=== PATIENT | female | born 1990 | race African-American/Black ===

== ENCOUNTER 2016-07-02 20:54 | Emergency (ER) | payer OTHER, SELFPAY ==
--- NOTE | 2016-07-02 21:42 | ERRECORD ---
[facility] EMERGENCY RECORD HPI NAUSEA/VOMITING/DIARRHEA (Sat Jul 03, 2016 00:17 JOHE) CHIEF COMPLAINT: Patient presents for evaluation of diarrhea, Number of times: 5, described as loose stools. HISTORIAN: History provided by patient, Pt. reports 5 X loose stools since last night. Mild suprapubic cramping without radiation or migration as well. No hematochezia, melena, F&C, N&V, or other complaints.No ill contacts, trauma or travel. No change in diet. Came to ED to see what she can take for diarrhea. LOCATION FEMALE: Symptoms are localized, most severe in the suprapubic region, no radiation, No migration of pain. QUALITY: Pain is dull in nature, described as cramping. SEVERITY: Maximum severity of symptoms mild, Currently symptoms are mild. TIME COURSE: Gradual onset of symptoms, 1, days priror to arrival, There has been no change in the patient's symptoms over time, are intermittent. ASSOCIATED WITH FEMALE: No associated recent antibiotic use, No associated bright red blood per rectum, No associated chills, No associated constipation, Associated with diarrhea, No associated fever, No associated flank pain, No associated groin pain, No associated hematemesis, No associated hematuria, No associated loss of appetite, No associated melena, No associated nausea, No associated night sweats, No associated trauma, No associated recent travel, No associated inability to tolerate oral intake, No associated urinary tract infection signs or symptoms, No associated vomiting, No associated vaginal discharge, No associated vaginal bleeding, No associated weight change, Denies any other complaints. EXACERBATED BY: Patient's condition exacerbated by nothing. RELIEVED BY: Patient's condition relieved by nothing because patient has not tried anything for relief. ROS (Sat Jul 03, 2016 00:19 JOHE) CONSTITUTIONAL: Historian denies chills, denies fatigue, denies fever, denies malaise, denies weakness, denies weight loss. EYES: Historian denies eye pain, denies vision changes. ENT: Historian denies otalgia, denies rhinorrhea, denies sore throat. CARDIOVASCULAR: Historian denies chest pain, denies syncope, denies palpitations. RESPIRATORY: Historian denies cough, denies shortness of breath, denies wheezing. GI: Historian reports abdominal pain, denies appetite changes, denies constipation, reports diarrhea, denies hematemesis, denies hematochezia, denies melena, denies nausea, denies vomiting. GENITOURINARY FEMALE: Historian denies dysuria, denies frequency, denies hematuria, denies urgency. MUSCULOSKELETAL: Historian denies back pain, denies myalgias, denies neck pain. SKIN: Historian denies rash, denies skin changes. &a-1R&a+25V*p+0X*r8381Q*c202B*c15G*c2P*p-0X&a-25V&a+1R Name: Ghassan Corrales : 1990 F25 MedRec: [id number] AcctNum: [id number] Prepared: Sat Jul 03, 2016 00:33 by Interface Page 1 of 3 pMD [facility] EMERGENCY RECORD NEUROLOGIC: Historian denies dizziness, denies focal weakness, denies gait changes, denies headache. NOTES: All systems reviewed, negative except as described above. PAST MEDICAL HISTORY (21:08 MBOS) MEDICAL HISTORY: No past medical history, Flu vaccine not up to date, Tetanus immunization up to date, Pneumococcal vaccine not up to date. FEMALE SURGICAL HISTORY: Patient has no surgical history. PSYCHIATRIC HISTORY: No previous psychiatric history. SOCIAL HISTORY: Patient drinks socially, twice a month, Patient denies drug use, Patient has no smoking history. KNOWN ALLERGIES Penicillins CURRENT MEDICATIONS No recorded medications VITAL SIGNS (21:05 MBOS) VITAL SIGNS: BP: 133/69, Pulse: 72, Resp: 16, Temp: 98.8 (Oral), Pain: 0, O2 sat: 98 on Room Air, Time: 07/02/2016 21:05. PHYSICAL EXAM (Sat Jul 03, 2016 00:20 JOHE) CONSTITUTIONAL: Vital signs reviewed, Pulse normal, Blood pressure normal, Respiratory rate normal, Patient appears non toxic, Patient alert and oriented to person, place and time, Appears well, NAD. HEAD: Head exam normal, Head exam included findings of head atraumatic, normocephalic. EYES: Eye exam normal, Eye exam included findings of eyelids normal to inspection, Pupils equally round and reactive to light, Extraocular muscles intact, Conjunctiva normal. ENT: ENT exam normal, Pharynx exam normal, not injected, no swelling, symmetrical, Uvula exam normal, midline, no edema, Tonsil exam normal, not enlarged, no exudates, Mouth exam normal, mucous membranes moist, no drooling, no lesions, no lacerations, no tongue elevation. NECK: Neck exam normal, Neck exam included findings of normal range of motion, Trachea midline. RESPIRATORY CHEST: Respiratory and chest exam normal, Respiratory exam included findings of no respiratory distress, Breath sounds clear, No wheezing, No rales, No rhonchi, Breath sounds not absent, Breath sounds not diminished, CTAB. CARDIOVASCULAR: Cardiovascular assessment normal, Cardiovascular exam included findings of heart rate regular rate and rhythm, Heart sounds normal, Pedal pulses normal, RRR, no R/M/G. + pulses all ext., no edema. ABDOMEN FEMALE: Abdominal exam normal, Abdominal exam included findings of abdomen nontender, Bowel sounds normal, Distension &a-1R&a+25V*p+0X*u1686Z*c202B*c15G*c2P*p-0X&a-25V&a+1R Name: Ghassan Corrales : 1990 F25 MedRec: [id number] AcctNum: [id number] Prepared: Sat Jul 03, 2016 00:33 by Interface Page 2 of 3 pMD [facility] EMERGENCY RECORD present, Mass palpated, Pulsatile mass present, Peritoneal signs present, rigidity present, guarding present, rebound present, Soft, ND, NT, + BS. No palpable masses, no CVAT. BACK: Back exam normal, Back exam included findings of normal inspection, range of motion normal, no tenderness, no costovertebral angle tenderness. UPPER EXTREMITY: Upper extremity exam normal, Upper extremity exam included findings of inspection normal, Range of motion normal, Motor strength normal, Radial pulse normal. LOWER EXTREMITY: Lower extremity exam normal, Lower extremity exam included findings of inspection normal, Range of motion normal, Motor strength normal, Posterior tibial pulse normal, Pedal pulse normal, no edema. NEURO: Neuro exam normal, [place] coma scale 15, Neuro exam findings include patient oriented to person, place and time, Speech normal, Gait normal. SKIN: Skin exam normal, Skin exam included findings of skin warm, dry, and normal in color, no rash. DOCTOR NOTES (Sat Jul 03, 2016 00:23 JOHE) TEXT: Note - Chart completed after patient discharge. Offered lab testing given diarrhea, and mild cramping. Patient refuses labs and imaging at this time. As she appears well, with benign abdominal exam, will d/c home with symptomatic treatment for presumed gastroenteritis. Discussed treatment, need for close outpatient f/u, and warning signs for immediate return to ED. PROBLEM LIST No recorded problems DIAGNOSIS (21:20 KRYSTYNA) FINAL: PRIMARY: Diarrhea - presumed infectious. PRESCRIPTION (21:21 KRYSTYNA) Imodium: CAPSULE : 2 mg : ORAL : Quantity: 1 Unit: cap(s) Route: ORAL Schedule: every 6 hours PRN Dispense: 15 Unit: cap(s) May substitute. Refills: No Refills . NOTES: No Refills. DISPOSITION PATIENT: Disposition Type: Discharge, Disposition: *Discharge Home, Condition: Good. (21:20 KRYSTYNA) Patient left the department. (21:31 JENNIFER) Caldwell: KRYSTYNA=MD Phi, Mian MBOS=ALEX Meyers, Fatuma &a-1R&a+25V*p+0X*p5464Q*c202B*c15G*c2P*p-0X&a-25V&a+1R Name: Ghassan Corrales : 1990 F25 MedRec: [id number] AcctNum: [id number] Prepared: Jun Jul 03, 2016 00:33 by Interface Page 3 of 3 pMD MTDD
--- NOTE | 2016-07-02 21:46 | PICIS ---
[facility] EMERGENCY RECORD TRIAGE (TueJul 02, 2016 21:05 MBOS) TRIAGE NOTES: diarrhea, started last night, denies any other symptoms. (TueJul 02, 2016 21:05 MBOS) PATIENT: NAME: Ghassan Corrales, AGE: 25, GENDER: female, : [facility] 1990, TIME OF GREET: TueJul 02, 2016 20:54, PREFERRED LANGUAGE: Irish, ETHNICITY: Not or , ECODE BILLING MAP: [facility], SSN: [id number], Zip Code: [address], KG WEIGHT: 101.60, PHONE: , , , PERSON ID: [id number], PCP: Dewey MARQUIS NOREEN. (TueJul 02, 2016 21:05 MBOS) COMPLAINT: DIARRHEA. (TueJul 02, 2016 21:05 MBOS) ADMISSION: URGENCY: 5 [employer], ADMISSION SOURCE: Home, TRANSPORT: CAR, BED: ER -04. (TueJul 02, 2016 21:05 MBOS) ASSESSMENT: Assessment: diarrhea since 1930 last night, 4 episodes, Symptoms began 24 hours ago. (21:08 MBOS) PAIN: No complaint of pain. (21:08 MBOS) IMMUNIZATIONS: Flu vaccine not up to date, Tetanus immunization up to date, Pneumococcal vaccine not up to date. (21:08 MBOS) SIRS SCORING: Heart Rate 55-109 (0), Temp range 96.8-101.1 (0), respiratory rate 12-24 (0), Mental Status altered: no (0). (21:08 MBOS) PROVIDERS: TRIAGE NURSE: Fatuma Meyers RN. (TueJul 02, 2016 21:05 MBOS) VITAL SIGNS: BP 133/69, Pulse 72, Resp 16, Temp 98.8, (Oral), Pain 0, O2 Sat 98, on Room Air, Time 07/02/2016 21:05. (21:05 MBOS) PREVIOUS VISIT ALLERGIES: Penicillins. (TueJul 02, 2016 21:05 MBOS) Penicillins. (21:08 MBOS) KNOWN ALLERGIES Penicillins CURRENT MEDICATIONS No recorded medications VITAL SIGNS (21:05 MBOS) VITAL SIGNS: BP: 133/69, Pulse: 72, Resp: 16, Temp: 98.8 (Oral), Pain: 0, O2 sat: 98 on Room Air, Time: 07/02/2016 21:05. NURSING ASSESSMENT: ABDOMEN (21:14 MBOS) CONSTITUTIONAL: Patient arrives ambulatory, Gait steady, History obtained from patient, Patient appears comfortable, Patient cooperative, Patient alert, Oriented to person, place and time, Skin warm, Skin dry, Skin normal in color, Mucous membranes pink, Mucous membranes moist, Patient is well-groomed, Patient complains of diarrhea. PAIN: Patient rates pain as 0 out of 10. ABDOMEN: Abdomen assessment findings include abdomen symmetrical, Abdomen soft, tender, suprapubic, slight &a-1R&a+25V*p+0X*r7649S*c202B*c15G*c2P*p-0X&a-25V&a+1R Name: Ghassan Corrales : 1990 F25 MedRec: [id number] AcctNum: [id number] Prepared: Sat Jul 03, 2016 00:33 by Interface Page 1 of 5 pMD [facility] EMERGENCY RECORD tenderness, no pulsatile mass, Bowel sound normal, no associated nausea, no associated vomiting, Associated with diarrhea, loose, watery, Number of episodes: 4, Patient reports 4 episodes of diarrhea in the last 24 hours. SAFETY: Side rails up, Cart/Stretcher in lowest position, Call light within reach, Hospital ID band on. NURSING PROCEDURE: DISCHARGE NOTE (21:26 MBOS) DISCHARGE: Patient discharged to home, ambulating without assistance, driving self, unaccompanied, Summary of Care printed/ provided, Discharge instructions given to patient, Simple or moderate discharge teaching performed, Prescriptions given and instructions on side effects given, Above person(s) verbalized understanding of discharge instructions and follow-up care, Patient treated and evaluated by physician. HPI NAUSEA/VOMITING/DIARRHEA (Sat Jul 03, 2016 00:17 JOHE) CHIEF COMPLAINT: Patient presents for evaluation of diarrhea, Number of times: 5, described as loose stools. HISTORIAN: History provided by patient, Pt. reports 5 X loose stools since last night. Mild suprapubic cramping without radiation or migration as well. No hematochezia, melena, F&C, N&V, or other complaints.No ill contacts, trauma or travel. No change in diet. Came to ED to see what she can take for diarrhea. LOCATION FEMALE: Symptoms are localized, most severe in the suprapubic region, no radiation, No migration of pain. QUALITY: Pain is dull in nature, described as cramping. SEVERITY: Maximum severity of symptoms mild, Currently symptoms are mild. TIME COURSE: Gradual onset of symptoms, 1, days priror to arrival, There has been no change in the patient's symptoms over time, are intermittent. ASSOCIATED WITH FEMALE: No associated recent antibiotic use, No associated bright red blood per rectum, No associated chills, No associated constipation, Associated with diarrhea, No associated fever, No associated flank pain, No associated groin pain, No associated hematemesis, No associated hematuria, No associated loss of appetite, No associated melena, No associated nausea, No associated night sweats, No associated trauma, No associated recent travel, No associated inability to tolerate oral intake, No associated urinary tract infection signs or symptoms, No associated vomiting, No associated vaginal discharge, No associated vaginal bleeding, No associated weight change, Denies any other complaints. EXACERBATED BY: Patient's condition exacerbated by nothing. RELIEVED BY: Patient's condition relieved by nothing because patient has not tried anything for relief. ROS (Sat Jul 03, 2016 00:19 JOHE) CONSTITUTIONAL: Historian denies chills, denies fatigue, denies &a-1R&a+25V*p+0X*p1395M*c202B*c15G*c2P*p-0X&a-25V&a+1R Name: Ghassan Corrales : 1990 F25 MedRec: [id number] AcctNum: [id number] Prepared: Sat Jul 03, 2016 00:33 by Interface Page 2 of 5 pMD [facility] EMERGENCY RECORD fever, denies malaise, denies weakness, denies weight loss. EYES: Historian denies eye pain, denies vision changes. ENT: Historian denies otalgia, denies rhinorrhea, denies sore throat. CARDIOVASCULAR: Historian denies chest pain, denies syncope, denies palpitations. RESPIRATORY: Historian denies cough, denies shortness of breath, denies wheezing. GI: Historian reports abdominal pain, denies appetite changes, denies constipation, reports diarrhea, denies hematemesis, denies hematochezia, denies melena, denies nausea, denies vomiting. GENITOURINARY FEMALE: Historian denies dysuria, denies frequency, denies hematuria, denies urgency. MUSCULOSKELETAL: Historian denies back pain, denies myalgias, denies neck pain. SKIN: Historian denies rash, denies skin changes. NEUROLOGIC: Historian denies dizziness, denies focal weakness, denies gait changes, denies headache. NOTES: All systems reviewed, negative except as described above. PAST MEDICAL HISTORY (21:08 MBOS) MEDICAL HISTORY: No past medical history, Flu vaccine not up to date, Tetanus immunization up to date, Pneumococcal vaccine not up to date. FEMALE SURGICAL HISTORY: Patient has no surgical history. PSYCHIATRIC HISTORY: No previous psychiatric history. SOCIAL HISTORY: Patient drinks socially, twice a month, Patient denies drug use, Patient has no smoking history. PHYSICAL EXAM (Sat Jul 03, 2016 00:20 JOHE) CONSTITUTIONAL: Vital signs reviewed, Pulse normal, Blood pressure normal, Respiratory rate normal, Patient appears non toxic, Patient alert and oriented to person, place and time, Appears well, NAD. HEAD: Head exam normal, Head exam included findings of head atraumatic, normocephalic. EYES: Eye exam normal, Eye exam included findings of eyelids normal to inspection, Pupils equally round and reactive to light, Extraocular muscles intact, Conjunctiva normal. ENT: ENT exam normal, Pharynx exam normal, not injected, no swelling, symmetrical, Uvula exam normal, midline, no edema, Tonsil exam normal, not enlarged, no exudates, Mouth exam normal, mucous membranes moist, no drooling, no lesions, no lacerations, no tongue elevation. NECK: Neck exam normal, Neck exam included findings of normal range of motion, Trachea midline. RESPIRATORY CHEST: Respiratory and chest exam normal, Respiratory exam included findings of no respiratory distress, Breath sounds clear, No wheezing, No rales, No rhonchi, Breath sounds not absent, &a-1R&a+25V*p+0X*b3353C*c202B*c15G*c2P*p-0X&a-25V&a+1R Name: Ghassan Corrales : 1990 F25 MedRec: [id number] AcctNum: [id number] Prepared: Sat Jul 03, 2016 00:33 by Interface Page 3 of 5 pMD [facility] EMERGENCY RECORD Breath sounds not diminished, CTAB. CARDIOVASCULAR: Cardiovascular assessment normal, Cardiovascular exam included findings of heart rate regular rate and rhythm, Heart sounds normal, Pedal pulses normal, RRR, no R/M/G. + pulses all ext., no edema. ABDOMEN FEMALE: Abdominal exam normal, Abdominal exam included findings of abdomen nontender, Bowel sounds normal, Distension present, Mass palpated, Pulsatile mass present, Peritoneal signs present, rigidity present, guarding present, rebound present, Soft, ND, NT, + BS. No palpable masses, no CVAT. BACK: Back exam normal, Back exam included findings of normal inspection, range of motion normal, no tenderness, no costovertebral angle tenderness. UPPER EXTREMITY: Upper extremity exam normal, Upper extremity exam included findings of inspection normal, Range of motion normal, Motor strength normal, Radial pulse normal. LOWER EXTREMITY: Lower extremity exam normal, Lower extremity exam included findings of inspection normal, Range of motion normal, Motor strength normal, Posterior tibial pulse normal, Pedal pulse normal, no edema. NEURO: Neuro exam normal, [place] coma scale 15, Neuro exam findings include patient oriented to person, place and time, Speech normal, Gait normal. SKIN: Skin exam normal, Skin exam included findings of skin warm, dry, and normal in color, no rash. EVENTS TRANSFER: Triage to Emergency Emergency Room -04. (TueJul 02, 2016 21:05 MBOS) Removed from Emergency Emergency Room -04. (21:31 MBOS) DOCTOR NOTES (Sat Jul 03, 2016 00:23 JOHE) TEXT: Note - Chart completed after patient discharge. Offered lab testing given diarrhea, and mild cramping. Patient refuses labs and imaging at this time. As she appears well, with benign abdominal exam, will d/c home with symptomatic treatment for presumed gastroenteritis. Discussed treatment, need for close outpatient f/u, and warning signs for immediate return to ED. PROBLEM LIST No recorded problems DIAGNOSIS (21:20 JOHE) FINAL: PRIMARY: Diarrhea - presumed infectious. DISPOSITION PATIENT: Disposition Type: Discharge, Disposition: *Discharge Home, Condition: Good. (21:20 E) Patient left the department. (21:31 MBOS) &a-1R&a+25V*p+0X*c6072L*c202B*c15G*c2P*p-0X&a-25V&a+1R Name: Ghassan Corrales : 1990 F25 MedRec: [id number] AcctNum: [id number] Prepared: [facility] Jul 03, 2016 00:33 by Interface Page 4 of 5 pMD [facility] EMERGENCY RECORD INSTRUCTION (21:22 KRYSTYNA) DISCHARGE: DIARRHEA, VIRAL (7Y-ADULT), ABDOMINAL PAIN, UNKNOWN CAUSE, (FEMALE). FOLLOWUP: Dewey MARQUIS, [facility], Obstetrics and Gynecology, [facility] [address], [facility] [address], [phone], Follow up with Primary Care Physician in 1-2 days. SPECIAL: Follow-up with your PCP. PRESCRIPTION (21:21 KRYSTYNA) Imodium: CAPSULE : 2 mg : ORAL : Quantity: 1 Unit: cap(s) Route: ORAL Schedule: every 6 hours PRN Dispense: 15 Unit: cap(s) May substitute. Refills: No Refills . NOTES: No Refills. IMAGING *DISCHARGE INSTRUCTIONS RECEIPT: Image captured from scanner. (21:30 MBOS) *SUPPLY CHARGE SHEET: Image captured from scanner. (21:31 MBOS) ADMIN ([facility] Jul 03, 2016 00:25 KYRSTYNA) DIGITAL SIGNATURE: MD Yip John. Caldwell: KRYSTYNA=MD Yip John MBOS=ALEX Meyers, Fatuma &a-1R&a+25V*p+0X*y5897W*c202B*c15G*c2P*p-0X&a-25V&a+1R Name: Ghassan Corrales : 1990 F25 MedRec: [id number] AcctNum: [id number] Prepared: Sat Jul 03, 2016 00:33 by Interface Page 5 of 5 pMD MTDD
== END 2016-07-02 21:26 | disposition home or self-care (01) ==
LOC: NAV ERS 20:54
DX: R19.7 Diarrhea, unspecified (principal)
CPT/HCPCS: 99283

== ENCOUNTER 2016-07-25 20:16 | Emergency (ER) | payer OTHER ==
[2016-07-25] MEDS ORDERED: Ondansetron ODT 4 MG TAB ONE (20:52)
--- NOTE | 2016-07-25 21:16 | PICIS ---
[facility] EMERGENCY RECORD TRIAGE (20:34 KASA) TRIAGE NOTES: Nausea all day, denies D/V. (20:34 KASA) PATIENT: NAME: Ghassan Corrales, AGE: 25, GENDER: female, : [facility] 1990, TIME OF GREET: Sun Jul 25, 2016 20:17, PREFERRED LANGUAGE: Slovenian, ETHNICITY: Not or , ECODE BILLING MAP: [facility] ER, SSN: [id number], Zip Code: [address], KG WEIGHT: 91.63, PHONE: , , , PERSON ID: [id number], PCP: Efraín Carpenter /Shmuel. (20:34 KASA) COMPLAINT: NAUSEA. (20:34 KASA) ADMISSION: URGENCY: 5 Fast [employer], ADMISSION SOURCE: Home, TRANSPORT: CAR, BED: ER -05. (20:34 KASA) PAIN: No complaint of pain. (20:38 KASA) SIRS SCORING: Heart Rate 55-109 (0), Temp range 96.8-101.1 (0), respiratory rate 12-24 (0), Mental Status altered: no (0). (20:38 KASA) TRIAGE SCREENING: Patient denies suicidal ideation, Patient denies presence of domestic violence. (20:38 KASA) LMP: Last menstrual period: 07/03/2016. (20:38 KASA) TREATMENTS IN PROGRESS: Treatments given Prehospital: None. (20:38 KASA) PROVIDERS: TRIAGE NURSE: Hina Reeves RN. (20:34 KASA) VITAL SIGNS: BP 132/76, Pulse 76, Resp 20, Temp 98.5, (Oral), Pain 0, O2 Sat 97, on Room Air, Time 07/25/2016 20:36. (20:36 KASA) PREVIOUS VISIT ALLERGIES: Penicillins. (20:34 KASA) Penicillins. (20:38 KASA) KNOWN ALLERGIES Penicillins: Reaction: Rash, Source: Patient, - hasn't taken since she was little CURRENT MEDICATIONS (20:35 KASA) None VITAL SIGNS (20:36 KASA) VITAL SIGNS: BP: 132/76, Pulse: 76, Resp: 20, Temp: 98.5 (Oral), Pain: 0, O2 sat: 97 on Room Air, Time: 07/25/2016 20:36. NURSING ASSESSMENT: ABDOMEN (20:39 KASA) CONSTITUTIONAL: Patient arrives ambulatory, Gait steady, History obtained from patient, Patient appears comfortable, Patient cooperative, Patient alert, Oriented to person, place and time, Skin warm, Skin dry, Skin normal in color, Mucous membranes pink, Mucous membranes moist, Patient complains of Nausea, Nausea all day, denies D. ABDOMEN: Abdomen assessment findings include abdomen symmetrical, Abdomen soft, non-tender, Associated with nausea, no associated vomiting, no associated diarrhea, Associated with constipation, Date of last bowel movement: 07/24/2016, no associated weight change, no associated appetite change, no &a-1R&a+25V*p+0X*o9140W*c202B*c15G*c2P*p-0X&a-25V&a+1R Name: Ghassan Corrales : 1990 F25 MedRec: [id number] AcctNum: [id number] Prepared: Yancy Jul 25, 2016 21:12 by Interface Page 1 of 6 pMD [facility] EMERGENCY RECORD associated foreign travel, Notes: States she ate around 0900. Able to hold down water and gatorade. SAFETY: Side rails up, Cart/Stretcher in lowest position, Call light within reach, Hospital ID band on. NURSING ASSESSMENT: EYE (20:59 KASA) EYES: Eye assessment findings include orbits normal, Eye lids normal, Conjunctiva normal, Sclera normal, Cornea clear, Iris normal, Pupils equally round and reactive to light, Visual acuity performed, Left eye: 20/30, Right eye: 20/30, Both eyes: 20/30, Notes: Patient complained to ERMD about blurry vision. SAFETY: Side rails up, Cart/Stretcher in lowest position, Call light within reach, Hospital ID band on. NURSING PROCEDURE: DISCHARGE NOTE (21:01 KASA) DISCHARGE: Patient discharged to home, ambulating without assistance, driving self, unaccompanied, Summary of Care printed/ provided, Discharge instructions given to patient, Simple or moderate discharge teaching performed, . Educated and provided handout regarding diagnosis of: Nausea Follow up with PCP in 2-3 days, Prescriptions given and instructions on side effects given, Name of prescription(s) given: Joseph Bueno person(s) verbalized understanding of discharge instructions and follow-up care. BELONGINGS: Belongings and valuables with patient upon arrival to the Emergency Department include:, Belongings and valuables with patient at time of discharge include:, Belongings remain with patient, Valuables remain with patient. SAFETY: Side rails up, Cart/Stretcher in lowest position, Call light within reach, Hospital ID band on. MEDICATION ADMINISTRATION SUMMARY Drug Name: Zofran ODT, Dose Ordered: 4 mg, Route: Oral, Status: Given, Time: 20:53 07/25/2016, Detailed record available in Medication Service section. MEDICATION SERVICE (20:53 JOHE) Zofran ODT: Order: Zofran ODT (ondansetron) - Dose: 4 mg : Oral Schedule: Now Ordered by: Mian Yip MD Entered by: MD Yancy Grant Jul 25, 2016 20:50 , Acknowledged by: ALEX Varela Jul 25, 2016 20:52 Documented as given by: ALEX Varela Jul 25, 2016 20:53 Patient, Medication, Dose, Route and Time verified prior to administration. Amount given: 4 mg, Site: Medication administered S.L., Correct patient, time, route, dose and medication confirmed prior to &a-1R&a+25V*p+0X*w1431A*c202B*c15G*c2P*p-0X&a-25V&a+1R Name: Ghassan Corrales : 1990 F25 MedRec: [id number] AcctNum: [id number] Prepared: Yancy Jul 25, 2016 21:12 by Interface Page 2 of 6 pMD [facility] EMERGENCY RECORD administration, Patient advised of actions and side-effects prior to administration, Allergies confirmed and medications reviewed prior to administration, Patient in position of comfort, Side rails up, Cart in lowest position. HPI NAUSEA/VOMITING/DIARRHEA (20:51 JOHE) CHIEF COMPLAINT: Patient presents for evaluation of nausea. HISTORIAN: History provided by patient, Patient reports that she has had nausea all day today. Says yesterday she had a migraine headache with nausea treated in ED in [place], [place], but today headache gone. No vomiting, F&C, diarrhea, constipation, abdominal pain, urinary symptoms or other complaints. No trauma, ill contacts or travel. Able to tolerate liquids. Last BM was yesterday and normal per patient. LOCATION FEMALE: Symptoms are generalized. QUALITY: nausea. SEVERITY: Maximum severity of symptoms mild, Currently symptoms are mild. TIME COURSE: Gradual onset of symptoms, 1, days priror to arrival, There has been no change in the patient's symptoms over time, are constant. ASSOCIATED WITH FEMALE: No associated bright red blood per rectum, No associated chills, No associated constipation, No associated diarrhea, No associated fever, Associated with flank pain, No associated groin pain, No associated hematemesis, No associated hematuria, No associated loss of appetite, No associated melena, Associated with nausea, No associated night sweats, No associated trauma, No associated recent travel, No associated inability to tolerate oral intake, No associated urinary tract infection signs or symptoms, No associated vomiting, No associated vaginal discharge, No associated vaginal bleeding, No associated weight change, Denies any other complaints. EXACERBATED BY: Patient's condition exacerbated by nothing. RELIEVED BY: Patient's condition relieved by nothing because patient has not tried anything for relief. ROS (20:54 KRYSTYNA) CONSTITUTIONAL: Historian denies chills, denies fatigue, denies fever, denies malaise. EYES: Historian denies eye pain, denies eye redness, denies eye discharge, denies nystagmus, denies photophobia, denies vision changes. ENT: Historian denies otalgia, denies rhinorrhea, denies sore throat. CARDIOVASCULAR: Historian denies chest pain, denies diaphoresis, denies syncope, denies palpitations. RESPIRATORY: Historian denies cough, denies shortness of breath, denies wheezing. GI: Historian denies abdominal pain, denies constipation, denies diarrhea, denies hematemesis, denies hematochezia, denies melena, reports nausea, denies stool changes, denies vomiting. GENITOURINARY FEMALE: Historian denies dysuria, denies frequency, &a-1R&a+25V*p+0X*u0897F*c202B*c15G*c2P*p-0X&a-25V&a+1R Name: Ghassan Corrales : 1990 F25 MedRec: [id number] AcctNum: [id number] Prepared: Yancy Jul 25, 2016 21:12 by Interface Page 3 of 6 pMD [facility] EMERGENCY RECORD denies hematuria, denies hesitancy, denies urgency. MUSCULOSKELETAL: Historian denies back pain, denies myalgias, denies neck pain. SKIN: Historian denies rash, denies skin changes, denies skin lesions. NEUROLOGIC: Historian denies dizziness, denies focal weakness, denies gait changes, denies headache, denies mental status changes, denies paralysis, denies paresthesias, denies seizures, denies sensory changes. PSYCHIATRIC: Historian denies alcohol abuse, denies drug abuse. NOTES: All systems reviewed, negative except as described above. PAST MEDICAL HISTORY (20:38 KASA) MEDICAL HISTORY: No past medical history, Flu vaccine not up to date, Tetanus immunization up to date, Pneumococcal vaccine not up to date. FEMALE SURGICAL HISTORY: Patient has no surgical history. PSYCHIATRIC HISTORY: No previous psychiatric history. SOCIAL HISTORY: Patient drinks socially, once a month, Patient denies drug use, Patient has no smoking history, Lives at home, with family. PHYSICAL EXAM (20:55 JOHE) CONSTITUTIONAL: Vital signs reviewed, Patient appears non toxic, Patient alert and oriented to person, place and time. HEAD: Head exam normal, Head exam included findings of head atraumatic, normocephalic. EYES: Eye exam included findings of eyelids normal to inspection, Pupils equally round and reactive to light, Extraocular muscles intact, Fundoscopic exam normal, Eye exam included findings of anterior chamber clear, Mild conjunctival injection bilaterally; PERRLA, EOMI, no nystagmus; nondilated funduscopic exam unremarkable. ENT: ENT exam normal, Ear exam normal, external ear normal, tympanic membranes normal, no foreign body, no drainage, no bleeding, hearing normal, Nose exam normal, no nasal deformity, no bleeding from nares, no bleeding from hypopharynx, no foreign body visualized, no septal hematoma, no septal necrosis, No turbinate mucosa discharge, Pharynx exam normal, not injected, no swelling, symmetrical, Uvula exam normal, midline, no edema, Tonsil exam normal, not enlarged, no exudates, Mouth exam normal, mucous membranes moist, no drooling, no lesions, no lacerations, no tongue elevation. NECK: Neck exam normal, Neck exam included findings of normal range of motion, Trachea midline. RESPIRATORY CHEST: Respiratory and chest exam normal, Respiratory exam included findings of no respiratory distress, Breath sounds clear, No wheezing, No rales, No rhonchi, Breath sounds not absent, Breath sounds not diminished, Chest exam included findings of chest &a-1R&a+25V*p+0X*g8829I*c202B*c15G*c2P*p-0X&a-25V&a+1R Name: Ghassan Corrales : 1990 F25 MedRec: [id number] AcctNum: [id number] Prepared: Yancy Jul 25, 2016 21:12 by Interface Page 4 of 6 pMD [facility] EMERGENCY RECORD movement symmetrical. CARDIOVASCULAR: Cardiovascular assessment normal, Cardiovascular exam included findings of heart rate regular rate and rhythm, Heart sounds normal, Pedal pulses normal. ABDOMEN FEMALE: Abdominal exam normal, Abdominal exam included findings of abdomen nontender, Bowel sounds normal, no distension, no mass, no peritoneal signs, no rigidity, no guarding, no rebound, Soft, ND, NT, + BS. No palpable masses. No CVAT. BACK: Back exam normal, Back exam included findings of normal inspection, range of motion normal, no tenderness, no costovertebral angle tenderness. UPPER EXTREMITY: Upper extremity exam normal, Upper extremity exam included findings of inspection normal, Range of motion normal, Motor strength normal, Sensation intact, Radial pulse normal. LOWER EXTREMITY: Lower extremity exam normal, Lower extremity exam included findings of inspection normal, Range of motion normal, Motor strength normal, Sensation intact, Posterior tibial pulse normal, Pedal pulse normal. NEURO: Neuro exam normal, Blade coma scale 15, Neuro exam findings include patient oriented to person, place and time, Speech normal, Gait normal, Cranial nerves intact, Deep tendon reflexes normal, no focal motor deficits, no focal sensory deficits, no nystagmus, no clonus, no asterixis. SKIN: Skin exam normal, Skin exam included findings of skin warm, dry, and normal in color, no rash. EVENTS (Yancy Jul 25, 2016 20:34 KASJanell) TRANSFER: Triage to Emergency Emergency Room -05. DOCTOR NOTES (21:04 ) TEXT: Pt's vision 20/30 bilaterally (see nursing notes). Normal eye exam, normal neurologic and abdominal exams, normal vitals, no headache or abdominal pain. LMP was 07/11/16. Discussed treatment for nausea, avoiding alcohol, tobacco, spicy/greasy foods, etc. Disc. outpatient f/u and warning signs for when to return to ED. PROBLEM LIST No recorded problems DIAGNOSIS (20:59 ) FINAL: PRIMARY: NAUSEA. DISPOSITION (:59 ) PATIENT: Disposition Type: Discharge, Disposition: *Discharge Home, Condition: Good. INSTRUCTION (:59 ) DISCHARGE: NAUSEA VOMITING 7YADULT. FOLLOWUP: [facility], /[facility], [address], &a-1R&a+25V*p+0X*h3930L*c202B*c15G*c2P*p-0X&a-25V&a+1R Name: Ghassan Corrales : 1990 F25 MedRec: [id number] AcctNum: [id number] Prepared: Yancy Jul 25, 2016 21:12 by Interface Page 5 of 6 pMD [facility] EMERGENCY RECORD [facility] [id number], , Follow up with Primary Care Physician in 2-3 days. SPECIAL: Follow-up with your PCP. PRESCRIPTION (:59 ) Zofran ODT: TABLET,DISINTEGRATING : 4 mg : ORAL : Quantity: 1 Unit: tab(s) Route: ORAL Schedule: every 8 hours PRN Dispense: 15 Unit: tab(s) May substitute. Refills: No Refills . NOTES: No Refills. ADMIN (:06 [facility]) DIGITAL SIGNATURE: MD Yip John. Caldwell: KRYSTYNA=MD Yip John KASA=ALEX Reeves, Hina &a-1R&a+25V*p+0X*m8508W*c202B*c15G*c2P*p-0X&a-25V&a+1R Name: Ghassan Corrales : 1990 F25 MedRec: [id number] AcctNum: [id number] Prepared: Yancy Jul 25, 2016 21:12 by Interface Page 6 of 6 pMD MTDD
== END 2016-07-25 21:01 | disposition home or self-care (01) ==
LOC: NAV ERS 20:16
DX: R11.0 Nausea (principal)
CPT/HCPCS: 99283; Q0162

== ENCOUNTER 2017-04-30 15:24 | Emergency (ER) | payer OTHER, SELFPAY ==
[2017-04-30] MEDS ORDERED: Metoclopramide HCl 10 MG/2 ML VIAL ONE (15:44)
[2017-04-30] MEDS ORDERED: Sodium Chloride 0.9% 1,000 ML ONE (15:44)
[2017-04-30] MEDS ORDERED: diphenhydrAMINE 50 MG/ML VIAL ONE (15:44)
== END 2017-04-30 16:42 | disposition home or self-care (01) ==
LOC: NAV ERS 15:24
DX: G43.909 Migraine, unspecified, not intractable, without status migrainosus (principal)
CPT/HCPCS: 96374; 96375; J1200; J2765; J7050

== ENCOUNTER 2017-07-03 22:49 | Emergency (ER) | payer BC ==
[2017-07-03] MEDS ORDERED: Ondansetron ODT 4 MG TAB ONE (23:01)
== END 2017-07-03 23:16 | disposition home or self-care (01) ==
LOC: NAV ERS 22:49
DX: K52.9 Noninfective gastroenteritis and colitis, unspecified (principal); G43.909 Migraine, unspecified, not intractable, without status migrainosus
CPT/HCPCS: 99283; Q0162

== ENCOUNTER 2018-03-27 02:10 | Emergency (ER) | payer OTHER ==
[2018-03-27] MEDS ORDERED: Cyclobenzaprine 10 MG TAB ONE (02:29)
[2018-03-27] MEDS ORDERED: Ibuprofen 800 MG TAB ONE (02:29)
--- NOTE | 2018-03-27 08:28 | RAD ---
2 VIEW CHEST: Date: 03/27/18 PA and lateral views obtained. HISTORY: Injury with chest pain. FINDINGS: The lung mcghee appear clear. Heart and mediastinum unremarkable. The osseous structures appear intac t. IMPRESSION: No acute findings. POS: H
== END 2018-03-27 03:45 | disposition home or self-care (01) ==
LOC: NAV ERS 02:10
DX: S29.012A Strain of muscle and tendon of back wall of thorax, initial encounter (principal); S20.211A Contusion of right front wall of thorax, initial encounter; G43.909 Migraine, unspecified, not intractable, without status migrainosus; V43.52XA Car driver injured in collision with other type car in traffic accident, initial encounter
CPT/HCPCS: 71046

== ENCOUNTER 2024-03-19 07:48 | Emergency (ER) | payer BC, SELFPAY ==
[2024-03-19] MEDS ORDERED: Acetaminophen 500 MG TAB ONE (08:03)
[2024-03-19] MEDS ORDERED: diphenhydrAMINE 50 MG/ML VIAL ONE (08:34)
[2024-03-19] MEDS ORDERED: Metoclopramide HCl 10 MG (2 mL) VIAL ONE (08:34)
[2024-03-19] MEDS ORDERED: Sodium Chloride 0.9% 1,000 ML ONE (08:35)
== END 2024-03-19 10:41 | disposition home or self-care (01) ==
LOC: NAV ERS 07:48
DX: G43.909 Migraine, unspecified, not intractable, without status migrainosus (principal); I10 Essential (primary) hypertension; Z79.899 Other long term (current) drug therapy
CPT/HCPCS: 96365; 96375; J1200; J2765; J7030

== ENCOUNTER 2024-12-19 22:25 | Emergency (ER) | payer OTHER, SELFPAY | END 2024-12-19 22:54 | disposition home or self-care (01) | LOC: NAV ERS 22:25 | DX: R11.0 Nausea (principal); G43.909 Migraine, unspecified, not intractable, without status migrainosus | CPT/HCPCS: 99283; Q0162 ==